=== PATIENT | female | born 1980 | race Two or more races ===

== ENCOUNTER 2025-02-18 07:06 | Outpatient (CLI) | payer OTHER | END 2025-02-18 07:07 | disposition home or self-care (01) | LOC: NUCLEAR 07:06 | PROVIDERS: ATTEND Internal Medicine Rheumatology | DX: M87.059 Idiopathic aseptic necrosis of unspecified femur (principal); M05.79 Rheumatoid arthritis with rheumatoid factor of multiple sites without organ or systems involvement ==